=== PATIENT | female | born 1955 | race Caucasian/White ===

== ENCOUNTER 2016-08-04 13:24 | Emergency (ER) | payer OTHER ==
[~2016-08-04] VITALS: Ht 152.4 cm; Wt 73.0 kg
[~2016-08-04 13:24] MED LIST: ACET-2047 PO; ALBU18HF INHALATION; AZIT250T94 PO; PRED20TA PO
[2016-08-04 13:38] VITALS: Ht 152.4 cm; Wt 73.0 kg
[2016-08-04] MEDS ORDERED: ALBUTEROL/IPRATROPIUM (NEB) 3 ML AMP HHN STA (15:16)
[2016-08-04] MEDS ORDERED: DEXAMETHASONE 10 MG/ML 1 ML INJ IM ONE (15:30)
--- NOTE | 2016-08-04 16:17 | RADRPT ---
PROCEDURE: CHEST 1VW CLINICAL INDICATION: Shortness of breath TECHNIQUE: Single frontal view of the chest was obtained COMPARISON: 08/11/2015 FINDINGS: The cardiac size is normal. Aortic vascular calcifications are demonstrated. There is no pulmonary vascular congestion. The lungs are clear. No consolidation, effusion, or pneumothorax. Mild degenerative changes of the visualized osseous structures are visualized. IMPRESSION: 1. No acute cardiopulmonary process. 2. Atherosclerosis. RPTAT:PP .Beltran Andrew MD, MD Date Time Electronically viewed and signed by .Beltran Andrew MD, MD on 08/04/2016 16:11 .V/
[2016-08-04] MEDS ORDERED: AZIT250T94 PO (16:33)
[2016-08-04] MEDS ORDERED: ALBU18HF INHALATION (16:34)
[2016-08-04] MEDS ORDERED: BENZ200C43 PO (16:34)
--- NOTE | 2016-08-04 17:06 | ERD ---
ER Documentation Chief Complaint Date/Time DATE: 08/04/16 TIME: 17:03 Chief Complaint COUGH X2 DAYS, VOMITED LAST NIGHT HPI This patient is a 61-year-old female with no significant past medical history presenting to the emergency department for sore throat, cough productive of greenish sputum and myalgias ongoing intermittently for the past 2 days. The patient did not have a flu shot this year. The patient denies any fevers, chills, or other symptoms at this time. ROS All systems reviewed and are negative except as per history of present illness. Medications Home Meds Active Scripts Benzonatate* (Benzonatate*) 200 Mg Capsule, 200 MG PO TID Y for COUGH, #20 CAP Prov:QIAN MYRICK PA-C 08/04/16 Albuterol Sulfate* (Ventolin HFA*) 18 Gm Hfa.aer.ad, 2 PUFF INHALATION Q4H, #1 INHALER Prov:QIAN MYRICK PA-C 08/04/16 Azithromycin* (Zithromax*) 250 Mg Tablet, 250 MG PO .ZPACK DIRECTED, #6 TAB TAKE 500 MG (2 TABS) THE FIRST DAY THEN 250 MG (1 TAB) DAYS 2-5 Prov:QIAN MYRICK PA-C 08/04/16 Albuterol Sulfate* (Ventolin HFA*) 18 Gm Hfa.aer.ad, 2 PUFF INHALATION Q4H, #1 INHALER Prov:SATYA RODRIGUEZ MD 08/11/15 Acetaminophen* (Acetaminophen*) 650 Mg Tablet, 650 MG PO Q6H Y for PAIN AND OR ELEVATED TEMP, #20 TAB Prov:SATYA RODRIGUEZ MD 08/11/15 Azithromycin* (Zithromax*) 250 Mg Tablet, 250 MG PO .ZPACK DIRECTED, #6 TAB TAKE 500 MG (2 TABS) THE FIRST DAY THEN 250 MG (1 TAB) DAYS 2-5 Prov:SATYA RODRIGUEZ MD 08/11/15 Prednisone* (Prednisone*) 20 Mg Tab, 40 MG PO DAILY for 4 Days, TAB Start 08/12/2015 Prov:SATYA RODRIGUEZ MD 08/11/15 Allergies Allergies: Coded Allergies: No Known Allergy (Unverified , 3/20/14) PMhx/Soc Medical and Surgical Hx: pt denies Medical Hx, pt denies Surgical Hx History of Surgery: No Anesthesia Reaction: No Hx Neurological Disorder: No Hx Respiratory Disorders: No Hx Cardiac Disorders: No Hx Psychiatric Problems: No Hx Miscellaneous Medical Probl: No Hx Alcohol Use: No Hx Substance Use: No Hx Tobacco Use: No Smoking Status: Never smoker FmHx Noncontributory for chief complaint Physical Exam Vitals Vital Signs Date Time Temp Pulse Resp B/P Pulse Ox O2 Delivery O2 Flow Rate FiO2 08/04/16 15:48 89 18 97 21 08/04/16 13:38 98.4 85 16 139/78 96 Physical Exam INITIAL VITAL SIGNS: Reviewed by me. GENERAL: Alert and interactive. No acute distress. HEAD: Head is normocephalic and atraumatic. EYES: EOMI. No scleral icterus. No conjunctival injection. ENT: Moist mucosa. NECK: Supple. Full range of motion. RESPIRATORY: Normal respiratory effort. Clear breath sounds bilaterally. No wheezing, rales, or rhonchi. CV: Regular rate and rhythm. Normal S1 S2. No S3 or S4. No murmurs. ABDOMEN: Soft, non-distended, non-tender. No guarding. No rebound. No masses. EXTREMITIES: No deformity. SKIN: Warm and dry. NEUROLOGIC: Alert and oriented x 4. Speech is normal. Moves all extremities equally. No motor or sensory deficits noted. Results 24 hrs Current Medications Medications (Trade) Dose Ordered Sig/Marcus Route PRN Reason Start Time Stop Time Status Last Admin Dose Admin Albuterol/ Ipratropium (Duoneb) 3 ml ONCE STAT HHN 08/04/16 15:16 08/04/16 15:17 DC 08/04/16 15:28 Dexamethasone (Decadron) 10 mg ONCE ONCE IM 08/04/16 15:30 08/04/16 15:31 DC 08/04/16 15:22 Procedures/MDM EMERGENCY DEPARTMENT COURSE / MEDICAL DECISION MAKING: This is a 61-year-old female who comes to the emergency room secondary to complaints of cough and sore throat. The patient was given IM Decadron and medication nebulizer in the department. On re-evaluation, the patient was feeling improved. Radiology: PROCEDURE: CHEST 1VW CLINICAL INDICATION: Shortness of breath TECHNIQUE: Single frontal view of the chest was obtained COMPARISON: 08/11/2015 FINDINGS: The cardiac size is normal. Aortic vascular calcifications are demonstrated. There is no pulmonary vascular congestion. The lungs are clear. No consolidation, effusion, or pneumothorax. Mild degenerative changes of the visualized osseous structures are visualized. IMPRESSION: 1. No acute cardiopulmonary process. 2. Atherosclerosis. RPTAT:PP .Beltran Andrew MD, MD Date Time Electronically viewed and signed by .Beltran Andrew MD, MD on 08/04/2016 16:11 The primary diagnosis is upper respiratory infection with unclear etiology. Secondary diagnosis is cough I have low suspicion for bronchitis, pneumonia, pneumothorax, pulmonary embolism , aortic dissection, or other emergent conditions at this time. Discharge: I have discussed the lab results and diagnostic findings with the patient and answered any questions or concerns. The patient was discharged with a prescription for albuterol, Z-Shar, and Tessalon Perles. The patient was advised to followup with their PMD in 1-2 days and to return to the Emergency Department if there are any new or worsening symptoms. The patient understood and agreed with the diagnosis, treatment and plan. The patient is stable for discharge at this time. Departure Diagnosis: Primary Impression: Upper respiratory infection URI type: unspecified URI Qualified Code: J06.9 - Upper respiratory tract infection, unspecified type Additional Impression: Cough Condition: Fair Patient Instructions: Preventing Common Respiratory Infections, Cough, Chronic , Uncertain Cause, (Adult) [facility]errals: [facility] Usted se lux hecho un examen mdico de control que le indica que no est en torie condicin que requiera tratamiento urgente en el Departamento de Emergencia. Un estudio ms profundo y el tratamiento de alexander condicin pueden esperar sin ningn riesgo hasta que usted sea atendida/o en el consultorio de alexander mdico o torie cl lisseth. Es responsabilidad suya arreglar torie le para el seguimiento del sara. MANEJO DE CONDICIONES NO URGENTES EN EL FUTURO 1) Si usted tiene un mdico de atencin primaria: Usted debera llamar a alexander mdico de atencin primaria antes de venir al departamento de emergencia. Despus de las horas de consultorio, alexander doctor o alexander asociado/a est disponible por telfono. El mdico o enfermero de francisco en el servicio telefnico puede asesorarle por jaylin medio para atender el problema, o sara contrario se puede programar torie le. 2) Si usted no tiene un mdico de atencin primaria: Llame al mdico o clnica de referencia que aparece abajo elise las horas de consultorio para hacer torie le para que le vean. CLINICAS: [facility] [phone] [facility] [phone] [facility] [phone] [facility] [phone] [address] [address] [place] [id number] [phone] [facility] [phone] [address] Additional Instructions: No mas mejor en 2-3 zhu, regresar. Mas peor en 24 horas, regresear rapidamente. Ir a doctor primario in 5-7 zhu. Usar instrucciones cuando kimberly medicamento. QIAN MYRICK PA-C Aug 04, 2016 17:06
== END 2016-08-04 16:55 | disposition home or self-care (01) ==
LOC: FTE 13:24
DX: J06.9 Acute upper respiratory infection, unspecified (principal); R05 Cough
CPT/HCPCS: 71010; 94664; 96372; J1100; Z7502; Z7610

== ENCOUNTER 2019-01-19 04:23 | Emergency (ER) | payer OTHER ==
[~2019-01-19] VITALS: Ht 154.9 cm; Wt 73.6 kg
[~2019-01-19 04:23] MED LIST changes: +AZIT250T PO; -AZIT250T94 PO; +BENZ200C68 PO; +FAMO-96 PO; +ONDA4TAB8 PO
[2019-01-19 04:28] VITALS: Ht 154.9 cm; Wt 73.6 kg
[2019-01-19] MEDS ORDERED: ONDANSETRON 4 MG INJ IV STA (06:00)
[2019-01-19] MEDS ORDERED: BELLADONNA/PHENOBARBITAL TAB PO STA (06:00)
[2019-01-19] MEDS ORDERED: LIDOCAINE/MYLANTA 40 ML BTL PO STA (06:00)
[2019-01-19] MEDS ORDERED: SOD CHLORIDE 0.9% 250 ML IV STA (06:00)
[2019-01-19] MEDS ORDERED: FAMOTIDINE 20 MG INJ IV STA (06:00)
--- NOTE | 2019-01-19 06:17 | ERD ---
ER Documentation Chief Complaint Chief Complaint epiogastric pain radiating to upper back since 0, vomiting,too HPI This is a 63-year-old female with no reported past medical history who is presenting with approximately 6 days of waxing and waning moderate burning epigastric pain radiating to her back with nausea and multiple episodes of nonbilious nonbloody vomiting. The patient reports that her symptoms are exacerbated by eating. She does not endorse any other alleviating or exacerbating factors. She does not endorse dysuria or hematuria or urgency or frequency. She does not endorse constipation or diarrhea. She does not endorse any black or bloody or tarry stools. The patient denies fever or chills. The patient has had no headache or vision changes. The patient does not endorse neck or back pain. The patient denies lightheadedness or dizziness. The patient has had no chest pain or trouble breathing. The patient has had no focal deficits. The patient has had no weakness or numbness or tingling to the face or extremities. ROS All systems reviewed and are negative except as per history of present illness. Medications Home Meds Active Scripts Ondansetron Hcl* (Zofran*) 4 Mg Tablet, 4 MG PO Q6H for NAUSEA AND/OR VOMITING, #30 TAB Prov:HARDIK WELLS MD 01/19/19 Famotidine* (Pepcid*) 20 Mg Tablet, 20 MG PO BID for 14 Days, TAB Prov:HARDIK WELLS MD 01/19/19 Benzonatate* (Benzonatate*) 200 Mg Capsule, 200 MG PO TID PRN for COUGH, #20 CAP Prov:QIAN MYRICK PA-C 08/04/16 Albuterol Sulfate* (Ventolin HFA*) 18 Gm Hfa.aer.ad, 2 PUFF INHALATION Q4H, #1 INHALER Prov:QIAN MYRICK PA-C 08/04/16 Azithromycin* (Zithromax*) 250 Mg Tablet, 250 MG PO .PABLO DIRECTED, #6 TAB TAKE 500 MG (2 TABS) THE FIRST DAY THEN 250 MG (1 TAB) DAYS 2-5 Prov:QIAN MYRICK PA-C 08/04/16 Albuterol Sulfate* (Ventolin HFA*) 18 Gm Hfa.aer.ad, 2 PUFF INHALATION Q4H, #1 INHALER Prov:SATYA RODRIGUEZ MD 08/11/15 Acetaminophen* (Acetaminophen*) 650 Mg Tablet, 650 MG PO Q6H PRN for PAIN AND OR ELEVATED TEMP, #20 TAB Prov:SATYA RODRIGUEZ MD 08/11/15 Azithromycin* (Zithromax*) 250 Mg Tablet, 250 MG PO .ZPACK DIRECTED, #6 TAB TAKE 500 MG (2 TABS) THE FIRST DAY THEN 250 MG (1 TAB) DAYS 2-5 Prov:SATYA RODRIGUEZ MD 08/11/15 Prednisone* (Prednisone*) 20 Mg Tab, 40 MG PO DAILY for 4 Days, TAB Start 08/12/2015 Prov:SATYA RODRIGUEZ MD 08/11/15 Allergies Allergies: Coded Allergies: No Known Allergy (Unverified , 08/22/13) PMhx/Soc Medical and Surgical Hx: pt denies Medical Hx, pt denies Surgical Hx History of Surgery: No Anesthesia Reaction: No Hx Neurological Disorder: No Hx Respiratory Disorders: No Hx Cardiac Disorders: No Hx Psychiatric Problems: No Hx Miscellaneous Medical Probl: No Hx Alcohol Use: No Hx Substance Use: No Hx Tobacco Use: No Smoking Status: Never smoker FmHx Family History: No diabetes Physical Exam Vitals Vital Signs Date Temp Pulse Resp B/P (MAP) Pulse Ox O2 O2 Flow FiO2 Time Delivery Rate 01/19/19 98.2 75 17 130/78 100 Room Air 08:19 (95) 01/19/19 97.5 57 18 175/75 100 04:28 (108) Physical Exam Const: No apparent distress, well-developed, well-nourished Head: Normocephalic, Atraumatic Eyes: Normal Conjunctiva. ENT: Normal External Ears, Nose and Mouth. Neck: Full range of motion. No meningismus. Resp: Clear to auscultation bilaterally, No wheezes, rales or rhonchi Cardio: Regular rate and rhythm. No murmurs, rubs or gallops Abd: Soft, non distended. Epigastric tenderness, mild. No guarding or rebound. Normal bowel sounds Skin: No petechiae or rashes Back: No midline tenderness. No CVA tenderness Ext: No cyanosis, or edema Neur: Awake and alert, oriented 4. Cranial nerves grossly intact. No facial droop. Normal strength, sensation and coordination. Psych: Normal Mood and Affect Result Diagram: 01/19/19 0730 01/19/19 0730 Results 24 hrs Laboratory Tests Test 01/19/19 07:30 01/19/19 07:33 White Blood Count 8.9 10^3/ul Red Blood Count 5.15 10^6/ul Hemoglobin 15.0 g/dl Hematocrit 46.7 % Mean Corpuscular Volume 90.7 fl Mean Corpuscular Hemoglobin 29.1 pg Mean Corpuscular Hemoglobin Concent 32.1 g/dl Red Cell Distribution Width 13.2 % Platelet Count 264 10^3/UL Mean Platelet Volume 10.5 fl Immature Granulocytes % 0.300 % Neutrophils % 79.4 % Lymphocytes % 14.0 % Monocytes % 4.6 % Eosinophils % 1.2 % Basophils % 0.5 % Nucleated Red Blood Cells % 0.0 /100WBC Immature Granulocytes # 0.030 10^3/ul Neutrophils # 7.0 10^3/ul Lymphocytes # 1.2 10^3/ul Monocytes # 0.4 10^3/ul Eosinophils # 0.1 10^3/ul Basophils # 0.0 10^3/ul Nucleated Red Blood Cells # 0.0 10^3/ul Sodium Level 142 mmol/L Potassium Level 4.0 mmol/L Chloride Level 104 mmol/L Carbon Dioxide Level 27 mmol/L Anion Gap 11 Blood Urea Nitrogen 18 mg/dl Creatinine 0.71 mg/dl Est Glomerular Filtrat Rate mL/min > 60 mL/min Glucose Level 135 mg/dl Calcium Level 9.9 mg/dl Total Bilirubin 0.5 mg/dl Direct Bilirubin 0.00 mg/dl Indirect Bilirubin 0.5 mg/dl Aspartate Amino Transf (AST/SGOT) 30 IU/L Alanine Aminotransferase (ALT/SGPT) 38 IU/L Alkaline Phosphatase 89 IU/L Total Protein 8.6 g/dl Albumin 4.8 g/dl Globulin 3.80 g/dl Albumin/Globulin Ratio 1.26 Lipase 41 U/L Urine Color YELLOW Urine Clarity SLIGHTLY CLOUDY Urine pH 7.0 Urine Specific [place] 1.017 Urine Ketones NEGATIVE mg/dL Urine Nitrite NEGATIVE mg/dL Urine Bilirubin NEGATIVE mg/dL Urine Urobilinogen NEGATIVE mg/dL Urine Leukocyte Esterase NEGATIVE [place]/ul Urine Microscopic RBC 1 /HPF Urine Microscopic WBC 2 /HPF Urine Mucus FEW /HPF Urine Hemoglobin NEGATIVE mg/dL Urine Glucose NEGATIVE mg/dL Urine Total Protein NEGATIVE mg/dl Current Medications Medications Dose Sig/Marcus Start Time Status Last (Trade) Ordered Route PRN Stop Time Admin Dose Reason Admin Sodium 250 ml @ Q1H STAT 01/19/19 DC 01/19/19 Chloride 250 mls/hr IV 06:00 07:12 01/19/19 06:59 Ondansetron 4 mg ONCE STAT 01/19/19 DC 01/19/19 HCl (Zofran IV 06:00 07:13 Inj) 01/19/19 06:01 Famotidine 20 mg ONCE STAT 01/19/19 DC 01/19/19 (Pepcid Iv) IV 06:00 07:13 01/19/19 06:01 40 ml ONCE STAT 01/19/19 DC 01/19/19 Miscellaneous PO 06:00 07:12 Medication 01/19/19 06:01 (Gi Cocktail (2)) Belladonna/ 2 tab ONCE STAT 01/19/19 DC 01/19/19 Phenobarbital PO 06:00 07:12 () 01/19/19 06:01 Procedures/MDM MDM The patient's presentation warrants further investigation. Previous medical r ecords, if available, were reviewed. LABS The patient's laboratory testing was obtained and reviewed. No emergent treatment was required unless described below. CBC: No E/o systemic infection or severe anemia or thrombocytopenia Chemistry: No E/o severe acidosis or alkalosis or renal failure or liver disease or diabetic ketoacidosis Lipase: No E/o pancreatitis Urine: No E/o acute infection or hematuria EKG EKG read by me: Rate/Rhythm: Sinus bradycardia at 55 bpm Intervals: Normal [place]: Normal Impression: No evidence of acute ischemia. Sinus bradycardia. IMAGING Imaging and Radiology interpretation reviewed. Ultrasound gallbladder FINDINGS: The pancreas is partially visualized and is otherwise without abnormal echogenicity. The liver displays diffuse increased echogenicity. The liver measures 16.2 cm in length. No evidence of intrahepatic biliary ductal dilatation is seen. The portal and hepatic veins are unremarkable. The gallbladder is partially contracted and contains multiple prominent shadowing stones. The gallbladder wall is thickened measuring 3.8 mm. There is comet-tail artifact projecting from the gallbladder wall suggestive of adenomyomatosis. No pericholecystic fluid is seen. The common bile duct measures 5.2 mm and is not dilated. The right kidney displays normal echogenicity. The right kidney measures 11.1 cm in maximal length. No caliectasis or hydronephrosis is seen. No free fluid is seen. IMPRESSION: 1. Hepatic steatosis. 2. Cholelithiasis with thickened gallbladder wall. 3. Questionable gallbladder adenomyomatosis. Electronically viewed and signed by Stevie Mccall MD, MD on 01/19/2019 07:19 TREATMENT/DISPOSITION The patient presents for waxing and waning burning epigastric pain with nausea vomiting, exacerbated by food. Gastritis versus GERD versus PUD are certainly possibilities. The patient was treated with IV fluids, Pepcid, Zofran and a GI cocktail with some improvement. The patient does not have evidence of viscus perforation. I do feel that this may be followed up further in an outpatient setting. The patient does not have any evidence of peritonitis. The patient does not have clinical symptoms concerning for mesenteric ischemia or ischemic colitis. The patient does not have right upper quadrant tenderness, but I did want to have the gallbladder evaluated. A right upper quadrant ultrasound was completed that revealed a mildly thickened gallbladder wall, which was concerning for adenomyomatosis. There is no evidence of obstructive cholestatic disease. At this time, I have low suspicion for gallstones, cholecystitis or biliary colic. The patient does not have left upper quadrant tenderness. I have low suspicion for pancreatitis. The patient does not have any right lower quadrant tenderness, or periumbilical tenderness. I have low suspicion for appendicitis. The patient does not have suprapubic tenderness. I have decreased suspicion for cystitis. The patient does not have any left lower quadrant tenderness, and I have low suspicion for diverticulosis or diverticulitis. The patient does not have any flank tenderness. The patient does not have gross hematuria. I have decreased suspicion for nephrolithiasis or renal colic. The patient does not have any palpable pulsatile mass or severe abdominal pain radiating to the back. I have low suspicion for aortic aneurysm, dissection or rupture. DISCHARGE Upon reevaluation of the patient, symptoms have improved. No emergent diagnoses were identified. At this time, I feel that the patient stable for discharge. The patient was instructed to follow-up with a primary care physician in 1-3 days. The patient will be given strict precautions with which to return to the emergency department. Prescriptions: Pepcid, Zofran The patient's blood pressure was elevated at greater than 120/80 while in the emergency department. The patient was otherwise stable with no evidence of hypertensive urgency or emergency. The patient does not require admission for blood pressure control. I have discussed with the patient the risks of hypertension. I have instructed the patient to return to the ER for any new or worsening symptoms including chest pain, shortness of breath, headache, blurred vision, confusion, nausea, vomiting or LOC. I have advised the patient to follow up with the primary care physician for outpatient monitoring and treatment for hypertension in 1-3 days. DISCLAIMER Inadvertent spelling and grammatical errors are likely due to EHR/dictation software use and do not reflect on the overall quality of patient care. Note that the electronic time recorded on this note does not necessarily reflect the actual time of the patient encounter. Departure Diagnosis: Primary Impression: Epigastric pain Additional Impressions: Nausea & vomiting Vomiting type: unspecified Vomiting Intractability: non-intractable Qualified Codes: R11.2 - Nausea with vomiting, unspecified Adenomyomatosis of gallbladder Condition: Stable Patient Instructions: Epigastric Pain (Uncertain Cause), Nausea and Vomiting- Adult Additional Instructions: Thank you for for coming to [facility] for your care today. Please ask your nurse or provider if you have questions about your care today and do not leave until all your questions have been answered. Please use any medications given as directed and follow-up with your doctor (or the doctor you were referred to) in the next 1-3 days. If you do not have a primary care doctor you may follow up at the [facility] or [facility] (listed below). You may also use motrin and tylenol as needed for fever and/or pain unless instructed otherwise by your provider or nurse. Indications for more urgent follow-up have been discussed, but you may return to the Emergency Department at ANY time for any worrisome or worsening symptoms. If you have abdominal pain, please know that no test or exam you received is perfect and you should follow up within 8 hours for continued pain. If you had any imaging studies today, such as an X-Ray or CT Scan, these studies will be reviewed later by a radiologist. You will be called if there are important findings that were not identified today, so make sure the contact information you provided at registration is correct. If you received any narcotic pain control medicine today, such as Vicodin, Morphine or Dilaudid, your coordination and judgment may be affected for a number of hours. Please do not drive or operate heavy machinery, and you may want someone to assist you at home. If you were given a prescription for narcotic medication, be aware that it is very addictive- use sparingly and only if necessary. PLEASE SEEK FURTHER EVALUATION AND MANAGEMENT AT YOUR DOCTORS OFFICE WITHIN THE NEXT 1-3 DAYS. IT IS YOUR RESPONSIBILITY TO MAKE AN APPOINTMENT FOR FOLOW-UP CARE. IF YOU HAVE A PRIMARY DOCTOR, PLEASE CALL THEIR OFFICE TO SCHEDULE AN APPOINTMENT FOR FOLLOW UP. IF YOU DO NOT HAVE A PRIMARY DOCTOR YOU CAN CALL OUR PHYSICIAN REFERRAL HOTLINE AT IF YOU CAN NOT AFFORD TO SEE A PHYSICIAN YOU CAN CHOSE FROM THE FOLLOWING [facility] CLINICS: [facility] [address] [facility] [address] [facility] [facility] [address] [facility] [address] [facility] [address] [facility] [facility]. [address] HARDIK LEAVITT MD Jan 19, 2019 06:17
[2019-01-19 08:19] VITALS: BP 130/78; PULSE 75; RESP 17
== END 2019-01-19 09:01 | disposition home or self-care (01) ==
LOC: E/R 04:23
DX: K82.8 Other specified diseases of gallbladder (principal)
CPT/HCPCS: 36415; 76705; 80053; 81001; 83690; 85025; 93005; 96374; 96375; J2405; J7040; Z7502; Z7610; 81003

== ENCOUNTER 2019-04-06 08:00 | Emergency (ER) | payer OTHER ==
[~2019-04-06] VITALS: Ht 160 cm; Wt 71.5 kg
[~2019-04-06 08:00] MED LIST changes: -ACET-2047 PO; +ACET-2343 PO; +ONDA4TAB14 PO; +PANT40TA3 PO
[2019-04-06 08:02] VITALS: Ht 160 cm; Wt 71.5 kg
[2019-04-06] MEDS ORDERED: ONDANSETRON 4 MG INJ IV STA (08:15)
[2019-04-06] MEDS ORDERED: LIDOCAINE 2% VISC 10 ML CUP PO ONE (08:30)
[2019-04-06] MEDS ORDERED: AL HYDROX/MG HYDROX/SIMETH 30 ML CUP PO ONE (08:30)
[2019-04-06] MEDS ORDERED: PANTOPRAZOLE 40 MG INJ IV ONE (08:30)
[2019-04-06 10:27] VITALS: BP 134/78; PULSE 78; RESP 16
== END 2019-04-06 10:28 | disposition home or self-care (01) ==
LOC: E/R 08:00
DX: R11.2 Nausea with vomiting, unspecified (principal); R40.2142 Coma scale, eyes open, spontaneous, at arrival to emergency department; R40.2362 Coma scale, best motor response, obeys commands, at arrival to emergency department; R40.2252 Coma scale, best verbal response, oriented, at arrival to emergency department
CPT/HCPCS: 36415; 76705; 80053; 81001; 83690; 84484; 85025; 93005; 96374; 96375; C9113; J2405; Z7502; Z7610